=== PATIENT | male | born 1985 | race African-American/Black ===

== ENCOUNTER 2020-08-25 17:12 | Emergency (ER) | payer BC ==
[~2020-08-25] VITALS: Ht 188 cm; Wt 95.3 kg
[2020-08-25 17:18] VITALS: BP 138/80
--- NOTE | 2020-08-25 19:15 | NUR ---
PT LEFT WITHOUT BEING SEEN BY ED PROVIDER.
== END 2020-08-25 19:16 | disposition left against medical advice (07) ==
LOC: ER 17:14
DX: Z53.21 Procedure and treatment not carried out due to patient leaving prior to being seen by health care provider (principal); R10.9 Unspecified abdominal pain

== ENCOUNTER 2021-03-10 14:19 | Inpatient (IN) | payer BC ==
[~2021-03-10] VITALS: Ht 180.3 cm; Wt 90.7 kg
--- NOTE | 2021-03-10 14:48 | NUR ---
ER-MD AT BEDSIDE.
--- NOTE | 2021-03-10 15:00 | NUR ---
IV STARTED, BLOOD DRAWN AND SENT TO THE LAB.
[2021-03-10] MEDS: IV NS 0.9% 1,000 ML BAG IV ONE ×2 (15:04→15:05)
[2021-03-10 15:14] LABS: BASOPHILS % (AUTO) 0.3 % (0.0-2.0); EOSINOPHILS % (AUTO) 0.4 % (0.0-6.0); HEMATOCRIT 37 % (39-51); HEMOGLOBIN 12.7 g/dL (13.5-17.5); LYMPHOCYTES # (AUTO) 0.6 K/uL (0.8-4.8); LYMPHOCYTES % (AUTO) 5.7 % (20.0-44.0); MEAN CORPUSCULAR HGB CONC 34 g/dl (31.0-36.0); MEAN CORPUSCULAR VOLUME 98 fL (80-96); MONOCYTES # (AUTO) 0.7 K/uL (0.1-1.30); NEUTROPHILS # (AUTO) 9.2 K/uL (1.8-8.9); NEUTROPHILS % (AUTO) 86.6 % (43.0-81.0); PLATELET COUNT (AUTO) 223 K/uL (150-450); RED BLOOD CELL COUNT(AUTO) 3.79 MIL/uL (4.5-6.0); WHITE BLOOD COUNT (AUTO) 10.6 K/uL (4.3-11.0)
--- NOTE | 2021-03-10 15:17 | NUR ---
PT TO RADIOLOGY FOR ABDOMINAL CT SCAN VIA [facility].
[2021-03-10 15:28] LABS: CALCIUM, SERUM 8.9 mg/dL (8.5-10.1); CARBON DIOXIDE 23 mmol/L (21-32); CHLORIDE 99 mmol/L (98-107); GLUCOSE 92 mg/dL (74-106); POTASSIUM 3.8 mmol/L (3.5-5.1); SODIUM SERUM 136 mmol/L (136-145); UREA NITROGEN, BLOOD 14 mg/dL (7-18)
[2021-03-10 15:32] LABS: ALANINE AMINOTRANSFERASE 29 U/L (12-78); ALBUMIN 4.5 g/dL (3.4-5.0); ALKALINE PHOSPHATASE 71 U/L (46-116); ASPARTATE AMINOTRANSFERASE 29 U/L (15-37); BILIRUBIN,DIRECT 0.2 mg/dL (0.0-0.2); BILIRUBIN,TOTAL 0.5 mg/dL (0.2-1.0); LIPASE 1088 U/L (73-393); TOTAL PROTEIN, SERUM 8.2 g/dL (6.4-8.2)
--- NOTE | 2021-03-10 16:18 | NUR ---
PER PATIENT, NOT TO GIVE OR PROVIDE ANY UPDATE TO ANY BODY AT THIS TIME. PRIMARY NURSE AWARE.
[2021-03-10] MEDS ORDERED: KETOROLAC TROMETHAMINE 15 MG/ML VIAL ONE (16:24)
[2021-03-10] MEDS ORDERED: KETOROLAC TROMETHAMINE INJ 30 MG/ML VIAL IV ONE (16:30)
[2021-03-10] MEDS ORDERED: ONDANSETRON HCL/PF 4 MG/2 ML VIAL IVP PRN (17:30)
[2021-03-10] MEDS ORDERED: FOLIC ACID 1 MG TABLET PO ONE (17:30)
[2021-03-10] MEDS: Thiamine 100 MG in IV D5W 50 ML IV SCH (18:10)
[2021-03-10] MEDS ORDERED: MORPHINE SULFATE INJ 2 MG/ML DISP.SYRIN ONE ×2 (18:14→22:06)
[2021-03-10] MEDS ORDERED: FOLIC ACID 1 MG TABLET ONE (18:15)
[2021-03-10] MEDS: MORPHINE SULFATE INJ 2 MG/ML DISP.SYRIN IV PRN ×2 (18:20→22:19)
--- NOTE | 2021-03-10 18:21 | NUR ---
PT IS STILL C/O 09/16 PAIN. MEDICATED ORDERED. SEE EMAR.
[2021-03-10] MEDS: IV 1/2NS 1000 ML 1,000 ML IV PRN (18:48)
--- NOTE | 2021-03-10 19:15 | NUR ---
REPORT TO MARLENA PURCELL FOR VERÓNICA.
--- NOTE | 2021-03-10 22:19 | NUR ---
PT C/O LOWER ABD PAIN 8/10 PAIN. ADMINISTERED MORPHING 1MG IVP ORDERED. WILL REASSESS FOR PAIN IN 30 MINUTES
--- NOTE | 2021-03-10 23:17 | NUR ---
PER DR. PUGA CHANGE MORPHINE 1MG IVP ORDERS TO MORPHINE 2MG IVP Q4H FOR PAIN. ORDERS NOTED AND CARRIED OUT
--- NOTE | 2021-03-11 00:15 | NUR ---
MRSA SWAB COLLECTED AND SENT TO LAB. PATIENT'S BELONGINGS LIST DONE.
[2021-03-11] MEDS: IV 1/2NS 1000 ML 1,000 ML IV PRN ×3 (01:11→15:47)
[2021-03-11] MEDS ORDERED: ACETAMINOPHEN 325 MG TABLET ONE (01:13)
[2021-03-11] MEDS: ACETAMINOPHEN 325 MG TABLET PO PRN (01:17)
--- NOTE | 2021-03-11 01:17 | NUR ---
ADMIN TYLENOL 650MG PO PRN FOR PAIN ORDERED. WILL REASSESS FOR PAIN IN 1 HOUR. 200ML URINE OUTPUT. ALL NEEDS MET AT THIS TIME.
--- NOTE | 2021-03-11 02:23 | NUR ---
250 ML URINE OUTPUT. PT MADE COMFORTABLE. ALL NEEDS MET AT THIS TIME
[2021-03-11] MEDS ORDERED: MORPHINE SULFATE INJ 2 MG/ML DISP.SYRIN ONE ×2 (03:15→07:05)
[2021-03-11] MEDS: MORPHINE SULFATE INJ 2 MG/ML DISP.SYRIN IV PRN ×5 (03:21→20:00)
--- NOTE | 2021-03-11 03:21 | NUR ---
PT C/O LOWER ABD PAIN 8/10 PAIN. ADMINISTERED MORPHING 2MG IVP ORDERED. WILL REASSESS FOR PAIN IN 30 MINUTES. VSS
--- NOTE | 2021-03-11 04:42 | NUR ---
ASSOCIATE JUVEN[employer] COURT JUDGE AT PT'S BEDSIDE
[2021-03-11 05:01] LABS: BASOPHILS % (AUTO) 0.5 % (0.0-2.0); HEMATOCRIT 35 % (39-51); HEMOGLOBIN 12.3 g/dL (13.5-17.5); LYMPHOCYTES # (AUTO) 0.6 K/uL (0.8-4.8); LYMPHOCYTES % (AUTO) 7.1 % (20.0-44.0); MEAN CORPUSCULAR HGB CONC 35 g/dl (31.0-36.0); MEAN CORPUSCULAR VOLUME 97 fL (80-96); MONOCYTES % (AUTO) 12.8 % (2.0-12.0); NEUTROPHILS # (AUTO) 6.4 K/uL (1.8-8.9); NEUTROPHILS % (AUTO) 78.6 % (43.0-81.0); PLATELET COUNT (AUTO) 191 K/uL (150-450); RED BLOOD CELL COUNT(AUTO) 3.63 MIL/uL (4.5-6.0); WHITE BLOOD COUNT (AUTO) 8.1 K/uL (4.3-11.0)
[2021-03-11 05:41] LABS: ALBUMIN 3.9 g/dL (3.4-5.0); BILIRUBIN,TOTAL 0.8 mg/dL (0.2-1.0); CALCIUM, SERUM 8.7 mg/dL (8.5-10.1); MAGNESIUM 1.9 mg/dL (1.8-2.4); PHOSPHORUS 3.1 mg/dL (2.5-4.9); POTASSIUM 3.8 mmol/L (3.5-5.1); TOTAL PROTEIN, SERUM 7.5 g/dL (6.4-8.2)
--- NOTE | 2021-03-11 07:11 | NUR ---
PT C/O LOWER ABD PAIN 8/10 PAIN. ADMINISTERED MORPHING 2MG IVP ORDERED. WILL REASSESS FOR PAIN IN 30 MINUTES. VSS
--- NOTE | 2021-03-11 07:13 | NUR ---
PT SLEPT WELL THROUGH OUT SHIFT; PT IN NO ACUTE DISTRESS AT THIS TIME. IVF 1/2NS @150ML/HR INFUSING;RAC #20G S/L. ALL NEEDS MET AT THIS TIME VSS.
--- NOTE | 2021-03-11 08:32 | NUR ---
GOT BED 315-1 READY AT 0845.
--- NOTE | 2021-03-11 09:20 | NUR ---
PT BEING TRANSPORT TO 3W BY EMT
--- NOTE | 2021-03-11 09:20 | NUR ---
REPORT GIVEN TO NARISSA FOR VERÓNICA
--- NOTE | 2021-03-11 09:25 | NUR ---
RN MS NOTES RECEIVED PT FROM E.R. STAFF VIA CHUY, PT IS AWAKE ALERT AND ORIENTED, NO SOB, ASSISTED TO BED, MADE COMFORTABLE, ROOM SET UP ORIENTATION PROVIDED TO PT, VERBALIZED UNDERSTANDING, VITAL SIGNS TAKEN AND RECORDED, WITH COMPLAINT OF ABDOMINAL PAIN 5/10, NO COMPLAINT OF NAUSEA, CALL LIGHT PLACED WITHIN REACH, IV FLUIDS INFUSING WELL.
[2021-03-11 09:30] VITALS: BP 160/98
[2021-03-11 16:00] VITALS: BP 135/83
[2021-03-11] MEDS: Thiamine 100 MG in IV D5W 50 ML IV SCH (17:51)
--- NOTE | 2021-03-11 18:25 | NUR ---
RN MS NOTES PT IN BED, AWAKE, ALERT AND ORIENTED, USING HIS CELLPHONE, NO COMPLAINT OF PAIN AT THIS TIME, STATED THAT HE IS NOT FEELING THAT MUCH PAIN ANYMORE, STARTED ON CLEAR LIQUID DIET, TOLERATES WELL, NO COMPLAINT OF NAUSEA, IV FLUIDS INFUSING WELL, PM MEDS GIVEN.
[2021-03-11 20:00] VITALS: BP 153/97
[2021-03-12] MEDS: MORPHINE SULFATE INJ 2 MG/ML DISP.SYRIN IV PRN ×4 (00:38→14:50)
[2021-03-12] MEDS: IV 1/2NS 1000 ML 1,000 ML IV PRN (00:38)
--- NOTE | 2021-03-12 06:09 | NUR ---
MS RN NOTES AWAKE & RESPONSIVE. NOT IN ANY DISTRESS. NO SOB NOTED. DENIES ANY PAIN OR DISCOMFORT AT THIS TIME. WITH IVF INFUSING WELL. MONITORED ACCORDINGLY. CALL LIGHT WITHIN REACH. BED IN LOWEST POSITION. SR UP X 2 FOR SAFETY. WILL ENDORSE TO NEXT SHIFT.
--- NOTE | 2021-03-12 07:36 | NUR ---
MS RN OPENING NOTES RECEIVED PT RESTING IN BED, AROUSABLE BY VOICE OR TOUCH TO A/O X 4. TOLERATING ROOM AIR WELL WITH NO SIGNS OF DISTRESS. SOTVER DRAINING CLEAR YELLOW URINE TO GRAVITY. R AC 20 G IV FLUSHING WELL WITH NO S/S OF INFECTION OR INFILTRATION. SAFETY MEASURES IN PLACE: BED IN LOWEST LOCKED POSITION, SIDE RAILS UP X 2, CALL LIGHT WITHIN REACH. WILL CONTINUE TO MONITOR.
[2021-03-12 08:00] VITALS: BP 160/106
[2021-03-12] MEDS ORDERED: THIAMINE HCL 100 MG TABLET PO SCH (09:00)
--- NOTE | 2021-03-12 09:53 | NUR ---
RN NOTES PATIENT COMPLAINING OF 8/10 LOWER ABDOMINAL PAIN THIS AM AND REQUESTED PRN PAIN MEDICATION, PRESCRIBED MORPHINE IV MEDICATION ADMINISTERED.
--- NOTE | 2021-03-12 14:56 | NUR ---
RN NOTES PATIENT NOTED WITH 8/10 LOWER ABDOMINAL PAIN AT THIS TIME AND REQUESTED PAIN MEDICATION. PRESCRIBED 2 MG MORPHINE IVP GIVEN, WILL CONTINUE TO MONITOR PATIENT FOR S/S OF PAIN.
[2021-03-12 16:00] VITALS: BP 151/111
[2021-03-12] MEDS: ACETAMINOPHEN 325 MG TABLET PO PRN (17:05)
--- NOTE | 2021-03-12 17:40 | NUR ---
RN DISCHARGED NOTES PT DISCHARGED HOME IN STABLE CONDITION. A/O X4. ABLE TO MAKE NEEDS KNOWN, AMBULATORY WITH STEADY GAIT. V/S TAKEN, STABLE AND RECORDED. ALL BELONGINGS ACCOUNTED FOR AND SIGNED FORM. NO SKIN ISSUES NOTED. IV ACCESS ON RAC REMOVED WITH NO ACTIVE BLEEDING NOTED, DRY PRESSURE DRESSING APPLIED AT SITE. NAME ARMBAND REMOVED. HEALTH TEACHINGS/DISCHARGED INSTRUCTIONS GIVEN TO PT AND VERBALIZED UNDERSTANDING. PT LEFT UNIT AMBULATORY AT 1730 ACCOMPANIED BY JAZZY SOLIZ. AND CHARGE NURSE AWARE OF DISCHARGE.
== END 2021-03-12 17:45 | disposition home or self-care (01) | DRG 440 ==
LOC: ER 14:24 → TRANSITION 17:31 → MED 03-11 09:01
PROVIDERS: ADMIT Internal Medicine; ATTEND Internal Medicine
DX: K85.90 Acute pancreatitis without necrosis or infection, unspecified (principal); F10.10 Alcohol abuse, uncomplicated; Z20.822 Contact with and (suspected) exposure to COVID-19; Y90.9 Presence of alcohol in blood, level not specified; Z86.16 Personal history of COVID-19
CPT/HCPCS: 36415; 80048-TC; 80053-TC; 80076-TC; 83605-TC; 83690-TC; 83735-TC; 84100-TC; 85025-TC; 87081-TC; G0378; J1885; J2270; J3411; J3490; J7030; J7060